=== PATIENT | female | born 1955 | race Caucasian/White ===

== ENCOUNTER → 2019-06-01 09:41 | Outpatient (CLI) | payer OTHER, SELFPAY ==
--- NOTE | 2019-06-01 | DI.MG.S_ITS ---
BILATERAL DIGITAL SCREENING MAMMOGRAM 3D/2D WITH CAD: 06/01/2019 CLINICAL: Routine screening. Baseline exam. No prior exams were available for comparison. There are scattered fibroglandular elements in both breasts. Current study was also evaluated with a Computer Aided Detection (CAD) system. No significant masses, calcifications, or other findings are seen in either breast. IMPRESSION: NEGATIVE There is no mammographic evidence of malignancy. A 1 year screening mammogram is recommended. This exam was interpreted at Station ID: [id number]. NOTE: For mammograms, a report in lay terms will be sent to the patient. Approximately 15% of breast malignancies will not be visualized mammographically. In the management of a palpable breast mass, a negative mammogram must not discourage biopsy of a clinically suspicious lesion. Electronically Signed By: Crescencio rivas/patti:06/03/2019 07:31:19 letter sent: Normal Exam ACR BI-RADS Category 1: Negative [id number]
== END ==
PROVIDERS: PCP Student in an Organized Health Care Education/Training Program; Visit Provider Student in an Organized Health Care Education/Training Program
DX: Z12.31 Encounter for screening mammogram for malignant neoplasm of breast (principal)
CPT/HCPCS: 77063; 77067

== ENCOUNTER → 2019-06-11 09:27 | Outpatient (CLI) | payer OTHER, SELFPAY ==
[2019-06-11 11:40] LABS: Cholesterol 273 mg/dL (140-199); Glucose Promotional 94 mg/dL (80-110); HDL Cholesterol 53 mg/dL (40-60); LDL Cholesterol Calculated 189 mg/dL (<100); Triglycerides 153 mg/dL (35-150)
== END ==
PROVIDERS: PCP Student in an Organized Health Care Education/Training Program
DX: Z13.9 Encounter for screening, unspecified (principal)
CPT/HCPCS: 80061; 82947

== ENCOUNTER → 2019-09-27 09:18 | Outpatient (CLI) | payer OTHER, SELFPAY ==
[2019-09-27 10:25] LABS: Cholesterol 198 mg/dL (140-199); HDL Cholesterol 51 mg/dL (40-60); LDL Cholesterol Calculated 123 mg/dL (<100); Triglycerides 121 mg/dL (35-150)
[2019-09-27 11:01] LABS: Vitamin D 25 Hydroxy (D3) 47.9 ng/mL (30.0-100.0)
== END ==
PROVIDERS: PCP Student in an Organized Health Care Education/Training Program; Referring Provider Student in an Organized Health Care Education/Training Program; Visit Provider Student in an Organized Health Care Education/Training Program
DX: E78.49 Other hyperlipidemia (principal); E55.9 Vitamin D deficiency, unspecified
CPT/HCPCS: 36415; 80061; 82306

== ENCOUNTER 2020-07-30 13:57 | Emergency (ER) | payer OTHER, SELFPAY ==
[2020-07-30 14:02] VITALS: BP 153/76; PULSE 86; RESP 15; TEMP 36.3; O2SAT 97; BMI 24.0
--- NOTE | 2020-07-30 14:07 | ED_ITS ---
HPI - General Adult General Chief complaint: Extremity Injury, Upper Stated complaint: Fell On PickleBall Court, Hurt Right Arm Time Seen by Provider: 07/30/20 14:02 Source: patient Mode of arrival: Ambulatory Limitations: no limitations History of Present Illness HPI narrative: 65-year-old female here for evaluation of right arm injury. Patient states that prior to arrival she was playing pickle ball and tripped on the court and fell landing on her right elbow. She also hit her head. There was no loss of consciousness. She has been unable to move her right arm secondary pain since then. No prior injuries. She is not on anticoagulation. Related Data Previous Rx's Medication Instructions Recorded sumatriptan succinate 25 mg tablet 25 mg PO Q1H PRN #12 tab MDD 100mg 08/29/19 pravastatin 20 mg tablet 20 mg PO BEDTIME #90 tab 09/27/19 hydrocodone-acetaminophen [[place]] 1 tab PO Q4-6H PRN #20 tab 07/30/20 Allergies Allergy/AdvReac Type Severity Reaction Status Date / Time No Known Drug Allergies Allergy Verified 07/30/20 14:08 Review of Systems Constitutional Constitutional: Denies headache(s) Eyes Eyes: Denies change in vision ENT Ears, Nose, Mouth, and Throat: Denies headache(s) Cardiovascular Cardiovascular: Denies chest pain and Denies dyspnea Respiratory Respiratory: Denies dyspnea Musculoskeletal Musculoskeletal: Denies tingling Comments: Right arm pain Integumentary/Breasts Skin/Breast: Denies lesions and Denies rash Neurologic Neurologic: Denies headache(s) and Denies tingling Hematologic/Lymphatic Hematologic/Lymphatic: Denies easy bleeding and Denies easy bruising Patient History Medical History Allergies Chicken pox Headache Measles Migraines Vision disorder Surgical History (Updated 09/11/19 @ 21:31 by Ileana Zuñiga) Anesthesia History of dilatation and curettage (~1984) Family History (Updated 09/11/19 @ 21:32 by Ileana Zuñiga) Father Cancer Mother Parkinson's disease Social History Smoking Status: Never smoker Smoking Status: Never smoker Exam Initial Vital Signs Initial Vital Signs: Vital Signs Temperature 97.3 F L 07/30/20 14:02 Pulse Rate 86 07/30/20 14:02 Respiratory Rate 15 07/30/20 14:02 Blood Pressure 153/76 H 07/30/20 14:02 Pulse Oximetry 97 07/30/20 14:02 Const General: cooperative, comfortable and well developed HENMT Head: contusion (Right for an) Resp Effort & Inspection: normal respiratory effort Cardio Rate: regular rate Pulses: radial pulses present on the right Skin Lesions: no lesions Rashes: no rashes Neuro Sensory Exam: no sensory deficits noted Extrem Other: Right hand and right wrist unremarkable. Limited range of motion of right elbow secondary to pain in her right humerus. Patient states her right shoulder does not hurt however she cannot move it secondary to pain in the right humerus. Psych Appearance: grossly normal and well kempt Procedures Orthopedic Splinting/Casting Injury #1: Side: right Upper Extremity Injury Location: upper arm Upper Extremity Immobilizer: sugar tong splint Other Orthopedic Equipment: other (Sling) Scores GCS Vipul coma scale eye opening: Spontaneous Melrose coma scale verbal response: Orientated Melrose coma scale motor response: Obey commands Melrose coma scale total score: 15 Nexus Score for C-Spine Focal Neurologic deficit present: No Midline spinal tenderness present: No Altered level of conciousness present: No Intoxication present: No Distracting Injury Present: No Nexus Criteria for C-spine: 0 Course Orders Ordered: ED Orders 07/30/20 14:05 XR humerus RT 2V Stat Discontinued Medications Hydromorphone HCl (Hydromorphone 1 Mg Inj) 1 mg IM NOW ONE Stop: 07/30/20 14:56 Last Admin: 07/30/20 15:00 Dose: 1 mg Documented by: Vital Signs Vital signs: Vital Signs - 8 hr 07/30/20 14:02 Temperature 97.3 F L Pulse Rate 86 Respiratory Rate 15 Blood Pressure 153/76 H Pulse Oximetry 97 Medical Decision Making Imaging Data Extremity x-ray #1: Radiologist's Impression: [address] [id number] ReportSigned Patient: Leesa Mendez LMR#: [id number]: [id number]:[id number]/Sex: 65 / FDate of Service: 07/30/20Loc: EDAccession Number: [id number] Procedure: XR humerus RT 2V Ordering Provider: King Cardona D.O. PROCEDURE: XR HUMERUS RT 2V INDICATIONS: Pain after fall TECHNIQUE: 2 views of the humerus were acquired. COMPARISON: None. FINDINGS: Bones: There is a displaced proximal shaft oblique fracture of the humerus with overriding. There is also a comminuted nondisplaced fracture the humeral neck. No dislocation. No suspicious bony lesions. Soft tissues: No suspicious soft tissue calcifications. IMPRESSION: 1. Displaced proximal shaft oblique fracture of the humerus with overriding. 2. Comminuted nondisplaced humeral head and neck fracture. Dictated by: Jluis Mata M.D. on 07/30/2020 at 14:43 Approved by: Jluis Mata M.D. on 07/30/2020 at 14:44 MDM Narrative Medical decision making narrative: Has right humeral shaft fracture. Contusion right forehead. Cervical spine cleared by nexus criteria. Discussed the case with Dr. Worthy with Orthopedics. Patient placed in a coaptation splint. Is neurovascularly intact. Feel we can hold on head CT or cervical spine CT for now. No other indication of orthopedic injury found on the exam or reported by patient. Will have her follow-up with orthopedics as an outpatient. She was given care instructions and return precautions. She expressed understanding and agreement. Discharge Plan Departure Patient Disposition: Home Clinical Impression: Fracture, humerus closed, shaft Qualifiers: Encounter type: initial encounter Fracture morphology: oblique Fracture alignment: displaced Laterality: right Qualified Code(s): S42.331A - Displaced oblique fracture of shaft of humerus, right arm, initial encounter for closed fracture Forehead contusion Qualifiers: Encounter type: initial encounter Qualified Code(s): S00.83XA - Contusion of other part of head, initial encounter Instructions: How to Use a Sling, How to Take Care of Your Splint, Humeral Shaft Fracture Activity Restrictions/Additional Instructions: The splint needs to stay on in stay clean and stay dry. Recommend that you contact the [facility] and [phone] I did discuss your case today with Dr. Worthy. Use the pain medication as directed. Return to the emergency department for any new or worsening symptoms. Prescriptions: New hydrocodone-acetaminophen [[place]] 5-325 mg tablet 1 tab PO Q4-6H PRN (Reason: pain) Qty: 20 RF: 0 No Action pravastatin 20 mg tablet 20 mg PO BEDTIME Qty: 90 RF: 3 sumatriptan succinate [Imitrex] 25 mg tablet 25 mg PO Q1H MDD 100mg PRN (Reason: migraine headache) Qty: 12 RF: 11 Referrals: Benji Valdez MD [Primary Care Provider] -
[2020-07-30] MEDS: HYDROMORPHONE 1 MG INJ IM (15:00)
[2020-07-30 15:48] VITALS: BP 107/67; PULSE 71; RESP 16; O2SAT 99
== END 2020-07-30 15:57 | disposition home or self-care (01) ==
PROVIDERS: Emergency Provider Emergency Medicine; PCP Student in an Organized Health Care Education/Training Program
DX: S42.331A Displaced oblique fracture of shaft of humerus, right arm, initial encounter for closed fracture (principal); S00.83XA Contusion of other part of head, initial encounter; S09.90XA Unspecified injury of head, initial encounter; W19.XXXA Unspecified fall, initial encounter
CPT/HCPCS: 29125; 73060; 96372; 99283; J1170

== ENCOUNTER → 2020-09-17 10:05 | Outpatient (CLI) | payer OTHER, SELFPAY ==
[2020-09-17] MEDS: COVID-19 VACC #1, MRNA(MOD) 100 MCG/0.5 ML VIAL IM (10:11)
== END ==
PROVIDERS: PCP Student in an Organized Health Care Education/Training Program; Visit Provider Internal Medicine
DX: Z23 Encounter for immunization (principal)
CPT/HCPCS: 0011A; 91301

== ENCOUNTER → 2020-10-15 09:46 | Outpatient (CLI) | payer OTHER, SELFPAY ==
[2020-10-15] MEDS: COVID-19 VACC #2, MRNA(MOD) 100 MCG/0.5 ML VIAL IM (09:49)
== END ==
PROVIDERS: PCP Student in an Organized Health Care Education/Training Program; Visit Provider Internal Medicine
DX: Z23 Encounter for immunization (principal)
CPT/HCPCS: 0012A; 91301

== ENCOUNTER → 2023-11-13 14:07 | Outpatient (CLI) | payer MEDICARE, BC, SELFPAY ==
[2023-11-13 15:17] LABS: Alanine Aminotransferase 33 IU/L (<35); Albumin 4.2 g/dL (3.5-5.0); Albumin Globulin Ratio 1.4 (1.0-2.8); Alkaline Phosphatase 61 U/L (38-126); Aspartate Aminotransferase 31 IU/L (14-36); Bilirubin Total 0.8 mg/dL (0.2-1.3); Blood Urea Nitrogen 17 mg/dL (7-17); Calcium 9.7 mg/dL (8.4-10.2); Carbon Dioxide 28 mmol/L (22-32); Chloride 105 mmol/L (98-107); Cholesterol 240 mg/dL (140-199); Estimated Glomerular Filt Rate 54 mL/min (>60); Glucose 97 mg/dL (80-110); HDL Cholesterol 50 mg/dL (40-60); HEMOLYSIS < 15 (0-50); Sodium 138 mmol/L (137-145); Total Protein 7.2 g/dL (6.3-8.2)
[2023-11-13 15:55] LABS: LDL Cholesterol Calculated 159 mg/dL (<100); Triglycerides 154 mg/dL (35-150)
== END ==
PROVIDERS: PCP Family Medicine; Referring Provider Family Medicine; Visit Provider Family Medicine
DX: Z00.00 Encounter for general adult medical examination without abnormal findings (principal); E78.2 Mixed hyperlipidemia
CPT/HCPCS: 36415; 80053; 80061

== ENCOUNTER → 2023-12-12 14:31 | Outpatient (CLI) | payer MEDICARE, BC, SELFPAY ==
[2023-12-12 15:20] LABS: Influenza A - CEPHEID Flu A NEGATIVE (NEGATIVE); Influenza B - CEPHEID Flu B NEGATIVE (NEGATIVE); Respiratory Syncytial Virus Negative (Negative)
[2023-12-12 16:03] LABS: COVID-19 CEPHEID 4-PLEX PCR Negative (Negative)
== END ==
PROVIDERS: PCP Family Medicine; Visit Provider Physician Assistant Surgical
DX: R05.9 Cough, unspecified (principal)
CPT/HCPCS: 0241U

== ENCOUNTER → 2024-06-24 13:35 | Outpatient (CLI) | payer MEDICARE, BC, SELFPAY ==
[2024-06-26 11:36] LABS: Fecal Immunochemical Test Negative (Negative)
== END ==
PROVIDERS: PCP Family Medicine; Referring Provider Family Medicine; Visit Provider Family Medicine
DX: Z00.00 Encounter for general adult medical examination without abnormal findings (principal); Z12.11 Encounter for screening for malignant neoplasm of colon
CPT/HCPCS: 82274

== ENCOUNTER → 2024-07-15 09:57 | Outpatient (CLI) | payer MEDICARE, BC, SELFPAY ==
--- NOTE | 2024-07-15 09:58 | DI.RAD.S_ITS ---
PROCEDURE: XR DEXA AXIAL SKELETON INDICATIONS: screening COMPARISON: None. FINDINGS: Lumbar Spine: Bone mineral density 1.039 g/cm2, T score -0.1. Left Hip: Bone mineral density 0.802 g/cm2, T score -0.4. Left Femoral Neck: Bone mineral density 0.946 g/cm2, T score 0.0. Right Hip: Bone mineral density 0.815 g/cm2, T score -0.3. Right Femoral Neck: Bone mineral density 0.955 g/cm2, T score 0.1. Fracture Risk Calculation (when applicable): 10-year fracture risk of a major osteoporotic fracture 7.7 percent and of a hip fracture 0.5 percent. (T score greater or equal to -1.0 to: NORMAL) (T score from -1.1 to -2.4: OSTEOPENIA) (T score less than or equal to -2.5: OSTEOPOROSIS) IMPRESSION: Normal bone mineral density. Follow-up guidelines as follows: Osteoporosis: Consider a repeat DEXA and Vertebral Fracture Assessment (VFA) exam in 2 years or sooner if medically necessary, to reassess this patient's status. Osteopenia: Consider a repeat DEXA in 2-3 years to reassess this patient's status, or if there is a new clinical indication. Normal: Consider a repeat DEXA in 5 years or sooner, or if there is a new clinical indication. All treatment decisions require clinical judgment and consideration of individual patient factors, including patient preferences, comorbidities, previous drug use, risk factors not captured in the FRAX model (e.g., frailty, falls, vitamin D deficiency, increased bone turnover, interval significant decline in bone density ) and possible under- or over-estimation of fracture risk by FRAX. In addition, the NOF Guide recommends that FDA-approved medical therapies be considered in postmenopausal women and men age >= 50 years with a: * Hip or vertebral (clinical or morphometric) fracture * T-score of <=-2.5 at the spine or hip * Ten-year fracture probability by FRAX of >= 3% for hip fracture or >=20% for major osteoporotic fracture. People with diagnosed cases of osteoporosis or at high risk for fracture should have regular bone mineral density tests. For patients eligible for Medicare, routine testing is allowed once every 2 years. The testing frequency can be increased to one year for patients who have rapidly progressing disease, those who are receiving or discontinuing medical therapy to restore bone mass, or have additional risk factors. Dictated by: Ashvin Ward M.D. on 07/15/2024 at 12:50 Approved by: Ashvin Ward M.D. on 07/15/2024 at 13:00
--- NOTE | 2024-07-15 09:58 | DI.MG.S_ITS ---
BILATERAL DIGITAL SCREENING MAMMOGRAM 3D/2D WITH CAD: 07/15/2024 CLINICAL: Routine screening. Comparison is made to exam dated: 06/01/2019 mammogram - [facility]. The breasts are almost entirely fatty (category a/<25% glandular tissue). Current study was also evaluated with a Computer Aided Detection (CAD) system. No significant masses, calcifications, or other findings are seen in either breast. There has been no significant interval change. IMPRESSION: NEGATIVE There is no mammographic evidence of malignancy. A 1 year screening mammogram is recommended. Based on the Tyrer Cuzick model (a risk assessment model) the patient's lifetime risk is 4.2% and her 10 year risk is 2.2%. According to the ACR, ACS, and NCCN guidelines, an annual breast MRI exam along with mammogram is recommended if the patient's lifetime risk is 20% or greater. This exam was interpreted at Station ID: [id number]. NOTE: For mammograms, a report in lay terms will be sent to the patient. Approximately 15% of breast malignancies will not be visualized mammographically. In the management of a palpable breast mass, a negative mammogram must not discourage biopsy of a clinically suspicious lesion. Electronically Signed By: Crescencio rivas/patti:07/15/2024 17:47:57 letter sent: Normal Exam ACR BI-RADS Category 1: Negative
== END ==
PROVIDERS: PCP Family Medicine; Referring Provider Family Medicine; Visit Provider Family Medicine
DX: Z12.31 Encounter for screening mammogram for malignant neoplasm of breast; R92.313 Mammographic fatty tissue density, bilateral breasts; Z13.820 Encounter for screening for osteoporosis; Z78.0 Asymptomatic menopausal state
CPT/HCPCS: 77063; 77067; 77080